=== PATIENT | female | born 1980 | race Two or more races ===

== ENCOUNTER → 2023-02-23 | Outpatient (CLI) | payer OTHER ==
[2023-02-23 14:35] LABS: Basophils # (auto) 0.1 10 ^3/uL (0-0.2); Eosinophils # (auto) 0.2 10 ^3/uL (0-0.8); Eosinophils % (auto) 3.5 % (0.0-7.0); Hematocrit 37.7 % (36.0-46.0); Hemoglobin 12.6 g/dL (12.2-16.2); Lymphocytes # (auto) 2.6 10 ^3/uL (0.4-5.4); Lymphocytes % (auto) 39.6 % (10.0-50.0); Mean Corpuscular Hemoglobin 27.6 pg (28.0-32.0); Mean Corpuscular Hgb Conc. 33.3 g/dL (32.0-36.0); Mean Corpuscular Volume 82.9 fL (80.0-100.0); Monocytes # (auto) 0.3 10 ^3/uL (0-1.3); Monocytes % (auto) 4.1 % (0.0-12.0); Neutrophils # (auto) 3.4 10 ^3/uL (1.6-8.6); Neutrophils % (auto) 51.8 % (37.0-80.0); Nucleated Red Blood Cells % 0.1 %; Red Blood Cells 4.55 10^6/uL (4.0-5.20); Red Cell Distribution Width 15.4 % (11.8-14.3); White Blood Cell 6.6 10^3/uL (4.4-10.8)
[2023-02-23 14:46] LABS: Follicle Stimulating Hormone 12.88 IU/L (SEE BELOW)
[2023-02-23 14:47] LABS: Leuteinizing Hormone 4.6 IU/L
[2023-02-24 08:06] LABS: Estradiol 38.9 pg/mL (.); Testosterone <3 ng/dL (4-50)
== END | disposition home or self-care (01) ==
LOC: LAB 13:58
PROVIDERS: ATTEND Obstetrics & Gynecology
DX: L65.8 Other specified nonscarring hair loss (principal)
CPT/HCPCS: 36415; 82306; 82670; 83001; 83002; 84402; 84403; 84443; 85025

== ENCOUNTER → 2023-02-24 | Outpatient (CLI) | payer OTHER ==
[2023-02-24 07:20] LABS: Urine Amorphous Crystal FEW /hpf (None Seen); Urine Bacteria NONE SEEN /hpf (None Seen); Urine Blood Negative /uL (Negative); Urine Clarity CLOUDY (Clear); Urine Color Yellow (Yellow); Urine Mucus FEW (None Seen); Urine Protein, UAD TRACE (Negative); Urine Urobilinogen Normal (Negative); Urine WBC 29 /hpf (0 - 5); Urine WBC Clumps PRESENT /hpf (None Seen); Urine pH 5.5 (5.0-8.0)
== END | disposition home or self-care (01) ==
LOC: LAB 06:05
PROVIDERS: ATTEND Obstetrics & Gynecology
DX: N39.0 Urinary tract infection, site not specified (principal)
CPT/HCPCS: 81001; 87086

== ENCOUNTER 2024-02-12 17:10 | Emergency (ER) | payer OTHER ==
[~2024-02-12] VITALS: Ht 157.5 cm; Wt 73.4 kg
[2024-02-12 17:56] VITALS: BP 139/96; PULSE 102; RESP 16; O2SAT 97
== END 2024-02-12 19:31 | disposition left against medical advice (07) ==
LOC: ER 17:10
DX: S61.011A Laceration without foreign body of right thumb without damage to nail, initial encounter (principal); Z53.21 Procedure and treatment not carried out due to patient leaving prior to being seen by health care provider; W26.8XXA Contact with other sharp object(s), not elsewhere classified, initial encounter; Y93.89 Activity, other specified; Y92.89 Other specified places as the place of occurrence of the external cause; Y99.8 Other external cause status